=== PATIENT | male | born 1940 | race Caucasian/White ===

== ENCOUNTER 2021-10-27 11:33 | Emergency (ER) | payer MEDICARE, OTHER ==
[2021-10-27] MEDS ORDERED: Sodium Chloride 0.9% 10 ML Syringe FLUSH PRN (11:59)
[2021-10-27] MEDS: Morphine 4 MG/ML Syringe IVPUSH ONE ×3 (12:06→15:56)
[2021-10-27 12:41] LABS: CHLORIDE,CL 100 mmol/L (98-107); SODIUM,NA 136 mmol/L (136-145)
[2021-10-27 12:43] LABS: ANION GAP 13.4 mmol/L (5-15)
== END 2021-10-27 17:45 | disposition short-term general hospital (02) ==
LOC: VM.ED 11:33
DX: S72.141A Displaced intertrochanteric fracture of right femur, initial encounter for closed fracture (principal); Z79.82 Long term (current) use of aspirin; Z79.84 Long term (current) use of oral hypoglycemic drugs; Z79.899 Other long term (current) drug therapy; W18.30XA Fall on same level, unspecified, initial encounter
CPT/HCPCS: 36415; 72192; 80053; 85025; 96374; 96376; 99285-25; J2270

== ENCOUNTER 2023-04-11 11:28 | Emergency (ER) | payer MEDICARE, OTHER ==
[2023-04-11] MEDS ORDERED: Sodium Chloride 0.9% 1,000 ML IV ONE (11:48)
[2023-04-11 11:57] LABS: BASOPHILS PERCENT AUTO 0.3 % (0.2-1.2); EOSINOPHILS ABSOLUTE AUTO 0.2 x10^3/uL (0.0-0.5); EOSINOPHILS PERCENT AUTO 1.5 % (0.0-4.0); HEMATOCRIT 38.6 % (40.0-52.0); HEMOGLOBIN 13.8 g/dL (14.0-18.0); IMMATURE GRAN ABSOLUTE AUTO 0.04 x10^3/uL (0.00-0.07); LYMPHOCYTES ABSOLUTE AUTO 2.6 x10^3/uL (1.0-4.8); LYMPHOCYTES PERCENT AUTO 20.6 % (25.0-50.0); MEAN CORPUSCULAR HEMOGLOBIN 30.5 pg (26.0-32.0); MEAN CORPUSCULAR HGB CONC 35.8 g/dL (32.0-36.0); MEAN CORPUSCULAR VOLUME 85.2 fL (78.0-93.0); MONOCYTES ABSOLUTE AUTO 0.9 x10^3/uL (0.0-0.8); MONOCYTES PERCENT AUTO 7.4 % (2.0-11.0); NEUTROPHILS ABSOLUTE AUTO 8.7 x10^3/uL (1.8-7.7); NEUTROPHILS PERCENT AUTO 69.9 % (50.0-80.0); PLATELET COUNT,PLT 200 x10^3/uL (130-400); RED BLOOD CELL COUNT 4.53 x10^6/uL (4.5-6.0); WHITE BLOOD CELL COUNT,WBC 12.4 x10^3/uL (4.0-10.0)
[2023-04-11 12:26] LABS: A/G RATIO 1.16; ALANINE AMINOTRANSFERASE,ALT 25 U/L (16-63); ALBUMIN 3.6 g/dL (3.4-5.0); ALKALINE PHOSPHATASE 65 U/L (46-116); ASPARTATE AMNIOTRANSFERASE,AST 16 U/L (15-37); BILIRUBIN TOTAL 0.7 mg/dL (0.2-1.0); BLOOD UREA NITROGEN,BUN 25 mg/dL (7-18); CALCIUM 8.9 mg/dL (8.5-10.1); CARBON DIOXIDE,CO2 22 mmol/L (21-32); CHLORIDE,CL 99 mmol/L (98-107); CREATINE KINASE,CK 65 U/L (39-308); CREATININE 1.8 mg/dL (0.70-1.30); GLUCOSE RANDOM 313 mg/dL (70-99); LACTATE DEHYDROGENASE,LDH 69 U/L (85-227); POTASSIUM,K 3.8 mmol/L (3.5-5.1); PROTEIN TOTAL,TP 6.7 g/dL (6.4-8.2); SODIUM,NA 136 mmol/L (136-145)
[2023-04-11 12:27] LABS: ANION GAP 18.8 mmol/L (5-15); C-REACTIVE PROTEIN < 0.05 mg/dL (<=0.30); ESTIMATED GFR 37 mL/min (>=60)
[2023-04-11 12:40] LABS: APPEARANCE,URINE CLEAR (CLEAR); BILIRUBIN,URINE NEGATIVE (NEGATIVE); COLOR,URINE YELLOW (YELLOW); GLUCOSE,URINE 500 mg/dL (NEGATIVE); KETONES,URINE NEGATIVE (NEGATIVE); LEUKOCYTE ESTERASE,URINE NEGATIVE (NEGATIVE); NITRITE,URINE NEGATIVE (NEGATIVE); OCCULT BLOOD,URINE NEGATIVE (NEGATIVE); PH,URINE 5.5 (5.0-8.0); PROTEIN,URINE NEGATIVE (NEGATIVE); UROBILINOGEN,URINE 0.2 EU/dL (0.2)
== END 2023-04-11 13:51 | disposition home or self-care (01) ==
LOC: VM.ED 11:28
DX: R55 Syncope and collapse (principal); E78.00 Pure hypercholesterolemia, unspecified; I10 Essential (primary) hypertension; E11.9 Type 2 diabetes mellitus without complications; Z79.82 Long term (current) use of aspirin; Z79.899 Other long term (current) drug therapy; Z79.84 Long term (current) use of oral hypoglycemic drugs
CPT/HCPCS: 36415; 70450; 71046; 80053; 81003; 82550; 83615; 84484; 85025; 86140; 93005; 96360; 96361; 99285; J7030

== ENCOUNTER 2025-04-30 08:57 | Emergency (ER) | payer MEDICARE, OTHER ==
[2025-04-30] MEDS: Diphtheria,Pertussis(Acell),Tetanus Vaccine 0.5 ML Syringe IM ONE (10:45)
== END 2025-04-30 10:45 | disposition home or self-care (01) ==
LOC: VM.ED 08:57
DX: S61.211A Laceration without foreign body of left index finger without damage to nail, initial encounter (principal); S61.213A Laceration without foreign body of left middle finger without damage to nail, initial encounter; I10 Essential (primary) hypertension; E78.00 Pure hypercholesterolemia, unspecified; K21.9 Gastro-esophageal reflux disease without esophagitis; E11.9 Type 2 diabetes mellitus without complications; Z79.82 Long term (current) use of aspirin; Z79.84 Long term (current) use of oral hypoglycemic drugs; Z79.899 Other long term (current) drug therapy; Z23 Encounter for immunization; W19.XXXA Unspecified fall, initial encounter
CPT/HCPCS: 12002; 90471; 90715; 99282; 99282-25; J2003

== ENCOUNTER 2025-06-11 16:18 | Emergency (ER) | payer MEDICARE, OTHER ==
[2025-06-11 16:55] LABS: BASOPHILS ABSOLUTE AUTO 0.1 x10^3/uL (0.0-0.2); BASOPHILS PERCENT AUTO 0.5 % (0.2-1.2); EOSINOPHILS ABSOLUTE AUTO 0.1 x10^3/uL (0.0-0.5); EOSINOPHILS PERCENT AUTO 0.8 % (0.0-4.0); IMMATURE GRAN ABSOLUTE AUTO 0.02 x10^3/uL (0.00-0.07); IMMATURE GRAN PERCENT AUTO 0.20 % (0.00-0.43); LYMPHOCYTES ABSOLUTE AUTO 1.8 x10^3/uL (1.0-4.8); LYMPHOCYTES PERCENT AUTO 16.7 % (25.0-50.0); MONOCYTES ABSOLUTE AUTO 0.9 x10^3/uL (0.0-0.8); MONOCYTES PERCENT AUTO 8.6 % (2.0-11.0); NEUTROPHILS ABSOLUTE AUTO 7.8 x10^3/uL (1.8-7.7); NEUTROPHILS PERCENT AUTO 73.2 % (50.0-80.0); PLATELET COUNT,PLT 189 x10^3/uL (130-400); RED BLOOD CELL COUNT 4.36 x10^6/uL (4.5-6.0); WHITE BLOOD CELL COUNT,WBC 10.6 x10^3/uL (4.0-10.0)
== END 2025-06-11 17:45 | disposition home or self-care (01) ==
LOC: VM.ED 16:18
DX: K59.00 Constipation, unspecified (principal); E78.00 Pure hypercholesterolemia, unspecified; E11.9 Type 2 diabetes mellitus without complications; I10 Essential (primary) hypertension; Z79.82 Long term (current) use of aspirin; Z79.899 Other long term (current) drug therapy; Z79.84 Long term (current) use of oral hypoglycemic drugs
CPT/HCPCS: 36415; 74018; 85025; 99283; 99284; A9270-GY